=== PATIENT | female | born 1985 | race Caucasian/White ===

== ENCOUNTER 2019-06-21 07:31 | Outpatient (CLI) | payer BC | END 2019-06-21 07:32 | disposition critical access hospital (66) | LOC: EMS 07:31 | PROVIDERS: ATTEND Surgery | DX: R07.81 Pleurodynia (principal) | CPT/HCPCS: A0425; A0427 ==

== ENCOUNTER 2019-06-21 07:41 | Emergency (ER) | payer BC ==
[2019-06-21] MEDS ORDERED: ACETAMINOPHEN 325 MG TABLET PO STA (07:48)
[2019-06-21] MEDS ORDERED: oxyCODONE 5 MG TABLET PO STA (07:48)
[2019-06-21] MEDS ORDERED: IBUPROFEN 600 MG TABLET PO STA (07:48)
--- NOTE | 2019-06-21 07:48 | ED Physician Documentation ---
History of Present Illness - Stated complaint Stated Complaint: R RIB PAIN - Additonal information Additional information: This is a 33-year-old female who presents with pain over the right lower chest. She was diagnosed with pneumonia as well as a fractured fifth rib anteriorly on a CT scan recently. The thought was that a forceful cough and caused a rib fracture. She has been on doxycycline for about a week, and she additionally has been on ketorolac, tramadol for pain. She has been improving on these mediations but this morning she woke up and she was stretching with her hands above her head and she felt a little bit of movement in the right mid lower rib and she had severe pain that caused her to call EMS. EMS arrived and gave her fentanyl, her oxygen saturation and vital signs were normal. She states currently that she feels okay unless she moves or takes a very deep breath in. The pain is located in the same spot that has been. She denies hemoptysis, leg swelling or history of blood clots. No abdominal pain or vomiting. Review of Systems Constitutional: denies: Fever Nose: denies: Rhinorrhea / runny nose Cardiac: reports: Chest pain / pressure Respiratory: denies: Hemoptysis GI: denies: Abdominal Pain, Nausea, Vomiting : denies: Dysuria Neurologic: denies: Generalized weakness PD PAST MEDICAL HISTORY - Past Medical History Respiratory: Pneumonia - Present Medications Home Medications: Ambulatory Orders Medication Instructions Recorded Confirmed Cyclobenzaprine [Flexeril] 10 mg PO BID 06/21/19 06/21/19 Doxycycline Monohydrate 150 mg PO BID 06/21/19 06/21/19 Ketorolac [Toradol] 10 mg PO Q4HR PRN 06/21/19 06/21/19 Lidocaine Patch 5% [Lidoderm Patch] 1 each TOP DAILY PRN #7 patch 06/21/19 Methocarbamol 500 mg PO TID PRN #15 tablet 06/21/19 traMADol [Ultram] 50 mg PO DAILY PM PRN 06/21/19 06/21/19 - Allergies Allergies/Adverse Reactions: Allergies Allergy/AdvReac Type Severity Reaction Status Date / Time No Known Drug Allergies Allergy Verified 06/21/19 07:43 - Living Situation Living Arrangement: reports: At home PD ED PE NORMAL - Vitals Vital signs reviewed: Yes - General General: Alert and oriented X 3, Other (Mildly uncomfortable but well-appearing female who is sitting up in bed speaking in full sentences.) - HEENT HEENT: Atraumatic, PERRL - Neck Neck: Other (Normal range of motion) - Cardiac Cardiac: RRR, No murmur, Other (Focal and reproducible tenderness over the right anterior mid to lower ribs) - Respiratory Respiratory: No respiratory distress, Clear bilaterally - Abdomen Abdomen: Soft, Non tender, Non distended - Derm Derm: Warm and dry - Extremities Extremities: No deformity - Neuro Neuro: Alert and oriented X 3 - Psych Psych: Normal mood, Normal affect Results - Vitals Vitals: Vital Signs - 24 hr 06/21/19 06/21/19 06/21/19 07:43 07:54 09:00 Temperature 37 C 37 C Heart Rate 89 97 88 Respiratory 20 22 20 Rate Blood Pressure 142/101 H 131/85 H 112/67 O2 Saturation 99 100 100 06/21/19 09:48 Temperature 36.6 C Heart Rate 61 Respiratory 20 Rate Blood Pressure 107/74 O2 Saturation 100 Oxygen O2 Source Room air - Rads (name of study) CXR Radiology: Other (No displaced rib fracture, no acute cardiopulmonary abnormality.) PD MEDICAL DECISION MAKING - ED course Complexity details: considered differential (Rib fracture, muscle strain, pneumothorax, pneumonia) ED course: Patient is nontoxic-appearing on exam she has focal tenderness over the right anterior lower ribs, no overlying skin changes. Her breath sounds are equal and present bilaterally, she is saturating normally on room air. X-ray is obtained and shows no acute cardiopulmonary abnormality. There is no pneumothorax or pneumonia. No displaced rib fracture. Given that she had a fracture that was seen on a CT scan in the region where she Has pain now, I think is likely that she exacerbated her rib fracture and this was the cause of her pain. The location of the pain would be highly atypical for ACS, especially given her lack of risk factors and history of a recent confirmed rib fracture. On repeat examination Patient's pain is better controlled, she is breathing with normal effort, and she feels well enough to go home. I discussed pain control and prescribed her lidocaine patches in addition to methocarbamol, I did explain that she should not combine the methocarbamol with any other sedating medication. I reviewed return precautions with the patient and she was discharged home in good condition Departure - Departure Disposition: 01 Home, Self Care Clinical Impression: Chest pain Qualifiers: Chest pain type: unspecified Qualified Code(s): R07.9 - Chest pain, unspecified Condition: Good Follow-Up: Provider,Other [Primary Care Provider] - Within 1 week Prescriptions: Lidocaine Patch 5% [Lidoderm Patch] 1 each TOP DAILY PRN #7 patch PRN Reason: Pain Methocarbamol 500 mg PO TID PRN #15 tablet PRN Reason: Pain Comments: You were seen today for pain which is likely due to the rib fracture that you recently suffered. Your chest x-ray does not show signs of any Pneumonia, or collapsed lung or other abnormalities. Please avoid movements or actions that increase the pain in your chest. You may try the methocarbamol and lidocaine patches for pain control. Methocarbamol can be somewhat sedating, so do not combine this with sedating medications such as tramadol. If you are having worsening symptoms such as difficulty breathing, blood in your sputum, or any other concerning symptoms return to emergency department Discharge Date/Time: 06/21/19 09:56
--- NOTE | 2019-06-21 09:11 | XRAY Report ---
Reason: R chest pain, dx rib fx Procedure Date: 06/21/2019 Accession Number: [id number] / [id number] Procedure: XR - Chest 2 View X-Ray CPT Code: 37105 Final Report FULL RESULT: EXAM: CHEST RADIOGRAPHY EXAM DATE: 06/21/2019 08:49 AM. CLINICAL HISTORY: Right chest pain, diagnosis of rib fracture. COMPARISON: None. TECHNIQUE: 2 views. FINDINGS: Lungs/Pleura: No focal opacities evident. No pleural effusion. No pneumothorax. Normal volumes. Mediastinum: Heart and mediastinal contours are unremarkable. Other: Two apparent symmetric bilateral lower lung nodules felt to represent the patient's nipples. IMPRESSION: No displaced rib fracture is detected and no convincing acute cardiopulmonary abnormality. [facility]
[2019-06-21 09:49] VITALS: BP 107/74
== END 2019-06-21 09:56 | disposition home or self-care (01) ==
LOC: ED 07:41
DX: R07.9 Chest pain, unspecified (principal); S22.31XA Fracture of one rib, right side, initial encounter for closed fracture; X58.XXXA Exposure to other specified factors, initial encounter
CPT/HCPCS: 71046; 99283; 99284; A9270